=== PATIENT | male | born 1990 | race Asian ===

== ENCOUNTER 2020-08-11 17:34 | Emergency (ER) | payer SELFPAY ==
[~2020-08-11] VITALS: Ht 182.9 cm; Wt 70.0 kg
[~2020-08-11 17:34] MED LIST: AMOXICILLIN 8751 TAB PO
[2020-08-11 17:39] VITALS: TEMP 98.3
[2020-08-11] MEDS ORDERED: AMOXICILLIN 8751 TAB PO (18:12)
[2020-08-11 18:39] VITALS: BP 156/85; PULSE 90
== END 2020-08-11 18:39 | disposition home or self-care (01) ==
LOC: COL.ER 17:34
DX: S61.452A Open bite of left hand, initial encounter (principal); S61.451A Open bite of right hand, initial encounter; W55.01XA Bitten by cat, initial encounter; Y92.219 Unspecified school as the place of occurrence of the external cause